=== PATIENT | male | born 1970 | race Caucasian/White ===

== ENCOUNTER 2019-11-01 12:16 | Emergency (ER) | payer BC, OTHER ==
[2019-11-01 12:28] VITALS: RESP 18; TEMP 98.7
[2019-11-01 12:32] LABS: Glucose,Whole Blood 126 mg/dL (75-99)
--- NOTE | 2019-11-01 12:50 | ED ---
General Adult HPI - General Chief complaint: Recheck/Abnormal Lab/Rx Stated complaint: nausea,lethargic Time Seen by Provider: 11/01/19 12:30 Source: patient, RN notes reviewed Mode of arrival: ambulatory Limitations: no limitations - History of Present Illness Initial comments: This a 49-year-old male who was a smoker and does chew tobacco but has no s ignificant medical issues he states who presents with complaints of one half days of feeling fatigued and rundown nausea with sweaty palms. He states he also had some fluid in his left ear several days ago seems to clear it up he also states he has loss of taste he also states he has some chills no overt cough no sore throat no rhinorrhea he does use Flonase intermittently for ALLERGIES. Does state that one of his coworkers-[employer] did test positive for Covid 19 but the patient's did not test positive test and negative. No dysuria hematuria no other modifying factors at this time no other known exposures to any infectious diseases. The patient does state he feels like he is coming down with something however. - Related Data Home Medications Medication Instructions Recorded Confirmed Azelastine HCl [Astepro] 2 spray INHALATION BID 02/16/14 02/16/14 Fluticasone Propionate [Flonase] 2 spray EA NOSTRIL DAILY 02/16/14 02/16/14 Montelukast [Singulair] 10 mg PO DAILY 02/16/14 02/16/14 diazePAM [Valium] 5 mg PO HS 02/16/14 02/16/14 Allergies Allergy/AdvReac Type Severity Reaction Status Date / Time No Known Allergies Allergy Verified 11/01/19 12:18 Review of Systems ROS Statement: Those systems with pertinent positive or pertinent negative responses have been documented in the HPI. ROS Other: All systems not noted in ROS Statement are negative. Past Medical History Additional Past Medical History / Comment(s): chronic back pain History of Any Multi-Drug Resistant Organisms: None Reported Past Surgical History: No Surgical Hx Reported Past Psychological History: Anxiety Smoking Status: Current every day smoker Past Alcohol Use History: None Reported, Rare Past Drug Use History: Marijuana - Past Family History Mother Additional Family Medical History / Comment(s): breast cancer metastasis General Exam - General Exam Comments Initial Comments: This is a well-developed well-nourished awake alert oriented times 3 male Limitations: no limitations General appearance: alert, in no apparent distress Head exam: Present: atraumatic, normocephalic, normal inspection Eye exam: Present: normal appearance, PERRL, EOMI. Absent: scleral icterus, conjunctival injection, periorbital swelling ENT exam: Present: normal exam, mucous membranes moist Neck exam: Present: normal inspection, full ROM, other (No stridor JVD or bruits). Absent: tenderness, meningismus, lymphadenopathy Respiratory exam: Present: normal lung sounds bilaterally. Absent: respiratory distress, wheezes, rales, rhonchi, stridor Cardiovascular Exam: Present: regular rate, normal rhythm, normal heart sounds. Absent: systolic murmur, diastolic murmur, rubs, gallop, clicks GI/Abdominal exam: Present: soft, normal bowel sounds. Absent: distended, tenderness, guarding, rebound, rigid Extremities exam: Present: normal inspection, full ROM, normal capillary refill. Absent: tenderness, pedal edema, joint swelling, calf tenderness Back exam: Present: normal inspection Neurological exam: Present: alert, oriented X3, CN II-XII intact Psychiatric exam: Present: normal affect, normal mood Skin exam: Present: warm, dry, intact, normal color. Absent: rash Course Vital Signs 11/01/19 11/01/19 12:19 14:22 Temperature 98.7 F Pulse Rate 78 64 Respiratory 18 18 Rate Blood Pressure 137/85 124/80 O2 Sat by Pulse 97 100 Oximetry Medical Decision Making - Medical Decision Making I did have a lengthy discussion the patient regarding the findings and the symptoms also are. Her presentation is consistent with a viral etiology. The peripheral markers for Covid 19 are within normal limits though the main test is pending. Patient will be discharged with a note for work for 2 days he is already get a follow-up appointment in 2 days with his doctor. He is return when necessary otherwise symptomatic care we did discuss return parameters. - Lab Data Result diagrams: 11/01/19 12:44 11/01/19 12:44 Lab Results 11/01/19 11/01/19 11/01/19 Range/Units 12:30 12:44 12:44 WBC 8.6 (3.8-10.6) k/uL RBC 5.94 H (4.30-5.90) m/uL Hgb 17.1 (13.0-17.5) gm/dL Hct 52.5 (39.0-53.0) % MCV 88.3 (80.0-100.0) fL MCH 28.8 (25.0-35.0) pg MCHC 32.6 (31.0-37.0) g/dL RDW 12.9 (11.5-15.5) % Plt Count 216 (150-450) k/uL Neutrophils % 69 % Lymphocytes % 24 % Monocytes % 3 % Eosinophils % 2 % Basophils % 0 % Neutrophils # 6.0 (1.3-7.7) k/uL Lymphocytes # 2.1 (1.0-4.8) k/uL Monocytes # 0.3 (0-1.0) k/uL Eosinophils # 0.2 (0-0.7) k/uL Basophils # 0.0 (0-0.2) k/uL D-Dimer (<0.60) mg/L FEU Sodium (137-145) mmol/L Potassium (3.5-5.1) mmol/L Chloride (98-107) mmol/L Carbon Dioxide (22-30) mmol/L Anion Gap mmol/L BUN (9-20) mg/dL Creatinine (0.66-1.25) mg/dL Est GFR (CKD-EPI)AfAm (>60 ml/min/1.73 sqM) Est GFR (CKD-EPI)NonAf (>60 ml/min/1.73 sqM) Glucose (74-99) mg/dL POC Glucose (mg/dL) 126 H (75-99) mg/dL POC Glu [employer] ID Sue Conteh Plasma Lactic Acid Fermín (0.7-2.0) mmol/L Calcium (8.4-10.2) mg/dL Magnesium (1.6-2.3) mg/dL Total Bilirubin (0.2-1.3) mg/dL AST (17-59) U/L ALT (4-49) U/L Alkaline Phosphatase (38-126) U/L Lactate Dehydrogenase (313-618) U/L Creatine Kinase (55-170) U/L Troponin I (0.000-0.034) ng/mL C-Reactive Protein (<10.0) mg/L Total Protein (6.3-8.2) g/dL Albumin (3.5-5.0) g/dL Urine Color Light Yellow Urine Appearance Clear (Clear) Urine pH 7.0 (5.0-8.0) Ur Specific [place] 1.004 (1.001-1.035) Urine Protein Negative (Negative) Urine Glucose (UA) Negative (Negative) Urine Ketones Negative (Negative) Urine Blood Negative (Negative) Urine Nitrite Negative (Negative) Urine Bilirubin Negative (Negative) Urine Urobilinogen <2.0 (<2.0) mg/dL Ur Leukocyte Esterase Negative (Negative) 11/01/19 11/01/19 11/01/19 Range/Units 12:44 12:44 12:48 WBC (3.8-10.6) k/uL RBC (4.30-5.90) m/uL Hgb (13.0-17.5) gm/dL Hct (39.0-53.0) % MCV (80.0-100.0) fL MCH (25.0-35.0) pg MCHC (31.0-37.0) g/dL RDW (11.5-15.5) % Plt Count (150-450) k/uL Neutrophils % % Lymphocytes % % Monocytes % % Eosinophils % % Basophils % % Neutrophils # (1.3-7.7) k/uL Lymphocytes # (1.0-4.8) k/uL Monocytes # (0-1.0) k/uL Eosinophils # (0-0.7) k/uL Basophils # (0-0.2) k/uL D-Dimer 0.38 (<0.60) mg/L FEU Sodium 142 (137-145) mmol/L Potassium 4.4 (3.5-5.1) mmol/L Chloride 106 (98-107) mmol/L Carbon Dioxide 24 (22-30) mmol/L Anion Gap 12 mmol/L BUN 9 (9-20) mg/dL Creatinine 0.64 L (0.66-1.25) mg/dL Est GFR (CKD-EPI)AfAm >90 (>60 ml/min/1.73 sqM) Est GFR (CKD-EPI)NonAf >90 (>60 ml/min/1.73 sqM) Glucose 106 H (74-99) mg/dL POC Glucose (mg/dL) (75-99) mg/dL POC Glu [employer] ID Plasma Lactic Acid Ferm[place] (0.7-2.0) mmol/L Calcium 10.1 (8.4-10.2) mg/dL Magnesium 2.0 (1.6-2.3) mg/dL Total Bilirubin 0.7 (0.2-1.3) mg/dL AST 30 (17-59) U/L ALT 17 (4-49) U/L Alkaline Phosphatase 60 (38-126) U/L Lactate Dehydrogenase (313-618) U/L Creatine Kinase 90 (55-170) U/L Troponin I <0.012 (0.000-0.034) ng/mL C-Reactive Protein (<10.0) mg/L Total Protein 8.5 H (6.3-8.2) g/dL Albumin 5.2 H (3.5-5.0) g/dL Urine Color Urine Appearance (Clear) Urine pH (5.0-8.0) Ur Specific [place] (1.001-1.035) Urine Protein (Negative) Urine Glucose (UA) (Negative) Urine Ketones (Negative) Urine Blood (Negative) Urine Nitrite (Negative) Urine Bilirubin (Negative) Urine Urobilinogen (<2.0) mg/dL Ur Leukocyte Esterase (Negative) 11/01/19 11/01/19 Range/Units 12:48 12:48 WBC (3.8-10.6) k/uL RBC (4.30-5.90) m/uL Hgb (13.0-17.5) gm/dL Hct (39.0-53.0) % MCV (80.0-100.0) fL MCH (25.0-35.0) pg MCHC (31.0-37.0) g/dL RDW (11.5-15.5) % Plt Count (150-450) k/uL Neutrophils % % Lymphocytes % % Monocytes % % Eosinophils % % Basophils % % Neutrophils # (1.3-7.7) k/uL Lymphocytes # (1.0-4.8) k/uL Monocytes # (0-1.0) k/uL Eosinophils # (0-0.7) k/uL Basophils # (0-0.2) k/uL D-Dimer (<0.60) mg/L FEU Sodium (137-145) mmol/L Potassium (3.5-5.1) mmol/L Chloride (98-107) mmol/L Carbon Dioxide (22-30) mmol/L Anion Gap mmol/L BUN (9-20) mg/dL Creatinine (0.66-1.25) mg/dL Est GFR (CKD-EPI)AfAm (>60 ml/min/1.73 sqM) Est GFR (CKD-EPI)NonAf (>60 ml/min/1.73 sqM) Glucose (74-99) mg/dL POC Glucose (mg/dL) (75-99) mg/dL POC Glu [employer] ID Plasma Lactic Acid Ferm[place] 1.2 (0.7-2.0) mmol/L Calcium (8.4-10.2) mg/dL Magnesium (1.6-2.3) mg/dL Total Bilirubin (0.2-1.3) mg/dL AST (17-59) U/L ALT (4-49) U/L Alkaline Phosphatase (38-126) U/L Lactate Dehydrogenase 499 (313-618) U/L Creatine Kinase (55-170) U/L Troponin I (0.000-0.034) ng/mL C-Reactive Protein <5.0 (<10.0) mg/L Total Protein (6.3-8.2) g/dL Albumin (3.5-5.0) g/dL Urine Color Urine Appearance (Clear) Urine pH (5.0-8.0) Ur Specific [place] (1.001-1.035) Urine Protein (Negative) Urine Glucose (UA) (Negative) Urine Ketones (Negative) Urine Blood (Negative) Urine Nitrite (Negative) Urine Bilirubin (Negative) Urine Urobilinogen (<2.0) mg/dL Ur Leukocyte Esterase (Negative) - EKG Data -: EKG Interpreted by Me EKG shows normal: sinus rhythm EKG Comments: Normal sinus rhythm a 65. Interval 148 QRS duration 80 QT since QTC 46/[address]-T wave changes - Radiology Data Radiology results: report reviewed (I did review the imaging and report no acute findings.), image reviewed Disposition Clinical Impression: Viral syndrome Disposition: HOME SELF-CARE Condition: Good Instructions (If sedation given, give patient instructions): Viral Syndrome (ED) Is patient prescribed a controlled substance at d/c from ED?: No Referrals: Barbara Romero PAC [Primary Care Provider] - 1-2 days
[2019-11-01 12:59] LABS: Basophils % (A) 0 %; Eosinophils # (A) 0.2 k/uL (0-0.7); Eosinophils % (A) 2 %; HCT 52.5 % (39.0-53.0); HGB 17.1 gm/dL (13.0-17.5); Lymphocytes # (A) 2.1 k/uL (1.0-4.8); Lymphocytes % (A) 24 %; MCH 28.8 pg (25.0-35.0); MCHC 32.6 g/dL (31.0-37.0); MCV 88.3 fL (80.0-100.0); Monocytes # (A) 0.3 k/uL (0-1.0); Monocytes % (A) 3 %; Neutrophils % (A) 69 %; Platelet Count 216 k/uL (150-450); RBC 5.94 m/uL (4.30-5.90); RDW 12.9 % (11.5-15.5); WBC 8.6 k/uL (3.8-10.6)
[2019-11-01 13:01] LABS: Appearance,Urine Clear (Clear); Bilirubin,Urine Negative (Negative); Blood,Urine Negative (Negative); Color,Urine Light Yellow; Glucose,Urine (UA) Negative (Negative); Ketones,Urine Negative (Negative); Leukocyte Esterase,Urine Negative (Negative); Nitrite,Urine Negative (Negative); Protein,Urine Negative (Negative); Specific Gravity,Urine 1.004 (1.001-1.035); Urobilinogen,Urine <2.0 mg/dL (<2.0)
[2019-11-01 13:17] LABS: C Reactive Protein <5.0 mg/L (<10.0); LDH 499 U/L (313-618)
[2019-11-01 13:17] LABS: ALT 17 U/L (4-49); AST 30 U/L (17-59); African American GFR (CKD) >90 (>60 ml/min/1.73 sqM); Albumin 5.2 g/dL (3.5-5.0); Alkaline Phosphatase 60 U/L (38-126); Anion Gap 12 mmol/L; Blood Urea Nitrogen 9 mg/dL (9-20); Calcium 10.1 mg/dL (8.4-10.2); Carbon Dioxide 24 mmol/L (22-30); Chloride 106 mmol/L (98-107); Creatine Kinase 90 U/L (55-170); Glucose 106 mg/dL (74-99); Non-African American GFR(CKD) >90 (>60 ml/min/1.73 sqM); Potassium 4.4 mmol/L (3.5-5.1); Sodium 142 mmol/L (137-145); Total Bilirubin 0.7 mg/dL (0.2-1.3); Total Protein 8.5 g/dL (6.3-8.2)
[2019-11-01 14:24] VITALS: BP 124/80; PULSE 64
--- NOTE | 2019-11-01 14:25 | XR ---
EXAMINATION TYPE: XR chest 2V DATE OF EXAM: 11/01/2019 HISTORY: fatigue. REFERENCE: Previous study dated 02/16/2014.. FINDINGS: Lungs remain clear. Pleural space are clear. The heart is not enlarged. IMPRESSION: NO ACTIVE INTRATHORACIC DISEASE.
[2019-11-01 17:09] LABS: Ferritin 177.5 ng/mL (22.0-322.0)
== END 2019-11-01 14:58 | disposition home or self-care (01) ==
LOC: EC 12:16
DX: B34.9 Viral infection, unspecified (principal); F41.9 Anxiety disorder, unspecified; F17.200 Nicotine dependence, unspecified, uncomplicated; Z79.899 Other long term (current) drug therapy; Z20.828 Contact with and (suspected) exposure to other viral communicable diseases
CPT/HCPCS: 36415; 93005; 85379; 80053; 82728; 82550; 83605; 83615; 83735; 84484; 85025; 86140; 81003; 71046; 99284; U0003

== ENCOUNTER 2021-04-09 10:00 | Emergency (ER) | payer BC ==
[2021-04-09 10:12] VITALS: BP 137/85; PULSE 97; RESP 20; TEMP 98
[2021-04-09] MEDS ORDERED: SODIUM CHLORIDE 0.9% 1,000 ML IV STA (10:37)
[2021-04-09] MEDS ORDERED: MORPHINE SULFATE 4 MG/ML SYRINGE IVP STA (10:38)
[2021-04-09] MEDS ORDERED: LORazepam 2 MG/ML INJ IV STA (10:43)
[2021-04-09 11:04] LABS: Basophils # (A) 0.1 k/uL (0-0.2); Basophils % (A) 1 %; Eosinophils # (A) 0.3 k/uL (0-0.7); Eosinophils % (A) 2 %; HCT 47.6 % (39.0-53.0); HGB 16.3 gm/dL (13.0-17.5); Lymphocytes # (A) 2.1 k/uL (1.0-4.8); Lymphocytes % (A) 15 %; MCH 30.3 pg (25.0-35.0); MCHC 34.2 g/dL (31.0-37.0); MCV 88.5 fL (80.0-100.0); Mean Platelet Volume 8.4; Monocytes # (A) 1.1 k/uL (0-1.0); Monocytes % (A) 8 %; Neutrophils # (A) 9.6 k/uL (1.3-7.7); Neutrophils % (A) 72 %; Platelet Count 190 k/uL (150-450); RBC 5.37 m/uL (4.30-5.90); RDW 12.8 % (11.5-15.5); WBC 13.4 k/uL (3.8-10.6)
--- NOTE | 2021-04-09 11:06 | ED ---
General Adult HPI - General Chief complaint: Abdominal Pain Stated complaint: Abd.Pain,Sweats Time Seen by Provider: 04/09/21 10:16 Source: patient, RN notes reviewed Mode of arrival: ambulatory Limitations: no limitations - History of Present Illness Initial comments: 50-year-old male presents to the emergency room for rectal pain. Patient states last week he would have a bowel movement and felt severe pain in his rectum. Patient states the pain has been persistent. States that his doctor was concerned it could be a stool blockage and patient took MiraLAX and an enema but it did not seem to help. He states she also gave him 2 g of and antibiotics for an infection at the office. Patient has not had fevers or chills. Patient states he feels a lump in the posterior aspect of his anus. He denies any abdominal pain. Patient has no other complaints at this time including shortness of breath, chest pain, abdominal pain, nausea or vomiting, headache, or visual changes. - Related Data Home Medications Medication Instructions Recorded Confirmed Azelastine HCl [Astepro] 2 spray INHALATION BID 02/16/14 02/16/14 Fluticasone Propionate [Flonase] 2 spray EA NOSTRIL DAILY 02/16/14 02/16/14 Montelukast [Singulair] 10 mg PO DAILY 02/16/14 02/16/14 diazePAM [Valium] 5 mg PO HS 02/16/14 02/16/14 Previous Rx's Medication Instructions Recorded Amoxicillin/Potassium Clav 1 tab PO Q12HR #20 tab 04/09/21 [Augmentin 875-125 Tablet] Allergies Allergy/AdvReac Type Severity Reaction Status Date / Time No Known Allergies Allergy Verified 04/09/21 10:12 Review of Systems ROS Statement: Those systems with pertinent positive or pertinent negative responses have been documented in the HPI. ROS Other: All systems not noted in ROS Statement are negative. Past Medical History Additional Past Medical History / Comment(s): chronic back pain History of Any Multi-Drug Resistant Organisms: None Reported Past Surgical History: No Surgical Hx Reported Past Psychological History: Anxiety Smoking Status: Current every day smoker Past Alcohol Use History: None Reported, Rare Past Drug Use History: Marijuana - Past Family History Mother Additional Family Medical History / Comment(s): breast cancer metastasis General Exam Limitations: no limitations General appearance: alert, in no apparent distress Head exam: Present: atraumatic Eye exam: Present: normal appearance, PERRL, EOMI. Absent: scleral icterus, conjunctival injection ENT exam: Present: normal exam, mucous membranes moist Neck exam: Present: normal inspection, full ROM. Absent: tenderness Respiratory exam: Present: normal lung sounds bilaterally. Absent: respiratory distress, wheezes Cardiovascular Exam: Present: regular rate, normal rhythm, normal heart sounds GI/Abdominal exam: Present: soft, normal bowel sounds. Absent: distended, tenderness Rectal exam: Present: mass (Possible rectal abscess noted posteriorly. 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 Patient is well-appearing. Physical exam does reveal some induration noted perianally. No obvious abscess formation. CBC does show leukocytosis. CMP is unremarkable. Lactic acid is normal. Pelvis CT with contrast does show a tiny perirectal/perianal abscess measuring 1.8 cm x 0.9 cm. Patient currently taking azithromycin. Case discussed with Dr Young. At this point we will discontinue azithromycin and start Augmentin. Patient will do warm soaks in the bathtub several times a day. He will follow up with Dr. Johnson. If he has any worsening symptoms or symptoms are not improving he will return to the emergency room. - Lab Data Result diagrams: 04/09/21 10:53 04/09/21 10:53 Lab Results 04/09/21 04/09/21 04/09/21 Range/Units 10:53 10:53 10:53 WBC 13.4 H (3.8-10.6) k/uL RBC 5.37 (4.30-5.90) m/uL Hgb 16.3 (13.0-17.5) gm/dL Hct 47.6 (39.0-53.0) % MCV 88.5 (80.0-100.0) fL MCH 30.3 (25.0-35.0) pg MCHC 34.2 (31.0-37.0) g/dL RDW 12.8 (11.5-15.5) % Plt Count 190 (150-450) k/uL MPV 8.4 Neutrophils % 72 % Lymphocytes % 15 % Monocytes % 8 % Eosinophils % 2 % Basophils % 1 % Neutrophils # 9.6 H (1.3-7.7) k/uL Lymphocytes # 2.1 (1.0-4.8) k/uL Monocytes # 1.1 H (0-1.0) k/uL Eosinophils # 0.3 (0-0.7) k/uL Basophils # 0.1 (0-0.2) k/uL Manual Slide Review Performed RBC Morphology Normal Sodium 140 (137-145) mmol/L Potassium 4.0 (3.5-5.1) mmol/L Chloride 106 (98-107) mmol/L Carbon Dioxide 23 (22-30) mmol/L Anion Gap 11 mmol/L BUN 15 (9-20) mg/dL Creatinine 0.72 (0.66-1.25) mg/dL Est GFR (CKD-EPI)AfAm >90 (>60 ml/min/1.73 sqM) Est GFR (CKD-EPI)NonAf >90 (>60 ml/min/1.73 sqM) Glucose 101 H (74-99) mg/dL Plasma Lactic Acid Ferm[place] 1.4 (0.7-2.0) mmol/L Calcium 9.8 (8.4-10.2) mg/dL Total Bilirubin 0.7 (0.2-1.3) mg/dL AST 22 (17-59) U/L ALT 17 (4-49) U/L Alkaline Phosphatase 58 (38-126) U/L Total Protein 7.7 (6.3-8.2) g/dL Albumin 4.6 (3.5-5.0) g/dL Amylase 35 (30-110) U/L Lipase 57 (23-300) U/L Disposition Clinical Impression: Perianal abscess Disposition: HOME SELF-CARE Condition: Good Instructions (If sedation given, give patient instructions): Rectal Abscess (ED) Additional Instructions: Please do sitz baths in warm water several times daily. Take Augmentin and discontinue azithromycin. Take Motrin and Tylenol for pain and inflammation. Follow up with primary care on Sunday and Dr. Sy. Return to the emergency room if symptoms are not improving on new antibiotic. Prescriptions: Amoxicillin/Potassium Clav [Augmentin 875-125 Tablet] 1 tab PO Q12HR #20 tab Is patient prescribed a controlled substance at d/c from ED?: No Referrals: Kendrick Chapa DO [Primary Care Provider] - 1-2 days Jarrell Sy MD [Medical Doctor] - 1-2 days Time of Disposition: 12:33
[2021-04-09 11:14] LABS: ALT 17 U/L (4-49); AST 22 U/L (17-59); African American GFR (CKD) >90 (>60 ml/min/1.73 sqM); Albumin 4.6 g/dL (3.5-5.0); Alkaline Phosphatase 58 U/L (38-126); Amylase 35 U/L (30-110); Anion Gap 11 mmol/L; Blood Urea Nitrogen 15 mg/dL (9-20); Calcium 9.8 mg/dL (8.4-10.2); Carbon Dioxide 23 mmol/L (22-30); Chloride 106 mmol/L (98-107); Glucose 101 mg/dL (74-99); Lipase 57 U/L (23-300); Non-African American GFR(CKD) >90 (>60 ml/min/1.73 sqM); Sodium 140 mmol/L (137-145); Total Bilirubin 0.7 mg/dL (0.2-1.3); Total Protein 7.7 g/dL (6.3-8.2)
--- NOTE | 2021-04-09 11:51 | CT ---
EXAMINATION TYPE: CT pelvis w con DATE OF EXAM: 04/09/2021 COMPARISON: None. HISTORY: perirectal abscess CT DLP: 1165.6 mGycm Automated exposure control for dose reduction was used. CONTRAST: Performed without oral but with IV Contrast, patient injected with 100 mL of Isovue 300. FINDINGS: Tiny thin walled fluid collection right perirectal/perianal region measures approximately 1.8 cm AP d iameter by 0.9 cm transversely axial image 59 x 2.3 cm craniocaudal dimension sagittal image 68 consi stent with tiny abscess given patient's history. Surrounding soft tissue is seen without significant fat stranding. The perirectal/perianal triangular fat planes are fairly well maintained near this lev el. Remainder of pelvis shows no suspicious bowel dilatation or other suspicious abnormality. Prostate gl and is mildly enlarged in size. Slight grade 1 anterolisthesis L5 on S1 with bilateral pars defect ar e incidentally noted. IMPRESSION: Tiny right perirectal/perianal abscess confirmed.
[2021-04-09] MEDS ORDERED: KETOROLAC 15 MG/ML 1 ML VIAL IVP STA (12:31)
[2021-04-09] MEDS ORDERED: cefTRIAXone IN SWFI 1,000 MG/10 ML SYRINGE IVP STA (12:31)
== END 2021-04-09 13:18 | disposition home or self-care (01) ==
LOC: EC 10:00
DX: K61.0 Anal abscess (principal); F41.9 Anxiety disorder, unspecified; F17.200 Nicotine dependence, unspecified, uncomplicated; F12.90 Cannabis use, unspecified, uncomplicated
CPT/HCPCS: 99284; 96374; 96375 ×2; 96361; 36415; 80053; 82150; 83605; 83690; 85025; 87040; 72193; J2060; J0696; J1885; Q9967

== ENCOUNTER 2021-05-09 09:42 | Day surgery (SDC) | payer BC ==
[2021-05-05 11:54] VITALS: BMI 27.2
[~2021-05-09 09:42] MED LIST: LACTATED RINGERS 1,000 ML IV SCH; LIDOCAINE 1% (10MG/ML) FOR IV START INTRADERMA PRN
[2021-05-09 10:24] VITALS: RESP 16; TEMP 98.4
[2021-05-09] MEDS ORDERED: LIDOCAINE 1% INJ 10MG/ML (20 ML MDV) ONE (10:49)
[2021-05-09] MEDS ORDERED: PROPOFOL 10 MG/ML 20 ML VIAL IV ONE (10:49)
--- NOTE | 2021-05-09 10:55 | P.GSHP ---
History of Present Illness H&P Date: 05/09/21 Chief Complaint: Perirectal abscess 50-year-old male who's had chronic issues with perirectal abscess. Patient presents today for for colonoscopy Past Medical History Additional Past Medical History / Comment(s): perianal abscess, chronic back pain History of Any Multi-Drug Resistant Organisms: None Reported Past Surgical History: No Surgical Hx Reported Past Anesthesia/Blood Transfusion Reactions: No Reported Reaction Additional Past Anesthesia/Blood Transfusion Reaction / Comment(s): never has had anesthesia Smoking Status: Current every day smoker - Past Family History Mother Additional Family Medical History / Comment(s): breast cancer metastasis Medications and Allergies Home Medications Medication Instructions Recorded Confirmed Type Fluticasone Propionate [Flonase] 2 spray EA NOSTRIL DAILY 02/16/14 05/05/21 History hydrOXYzine HCL [Atarax] 50 mg PO HS PRN 05/05/21 05/05/21 History Allergies Allergy/AdvReac Type Severity Reaction Status Date / Time No Known Allergies Allergy Verified 05/09/21 10:03 Surgical - Exam Vital Signs Temp Pulse Resp BP Pulse Ox 98.4 F 67 16 123/74 98 05/09/21 10:22 05/09/21 10:22 05/09/21 10:22 05/09/21 10:22 05/09/21 10:22 - General well developed, well nourished, no distress - Eyes PERRL - ENT normal pinna - Neck no masses - Respiratory normal expansion - Cardiovascular Rhythm: regular - Abdomen Abdomen: soft, non tender Assessment and Plan Assessment: History of perirectal abscess.. We'll perform colonoscopy.
--- NOTE | 2021-05-09 11:13 | P.OP ---
Date of Procedure: 05/09/21 Preoperative Diagnosis: Rectal abscess Postoperative Diagnosis: Rectal polyp Internal hemorrhoids Procedure(s) Performed: Colonoscopy Anesthesia: MAC Surgeon: Blaine Wall Pathology: other (Rectal polyp) Condition: stable Disposition: PACU Description of Procedure: The patient's placed on the endoscopy table in the lateral position. He received IV. Digital rectal exam was performed. This revealed internal hemorrhoids. The flexible colonoscope was then placed patient anus and passed throughout the entire colon. The ileocecal valve was visualized. The cecum, ascending and transverse colon appeared normal. The descending colon appeared normal. The sigmoid colon appeared normal. Scope was brought back the rectum and there was no inflammatory changes seen. The scope was withdrawn internal hemorrhoids were seen. Scope was then withdrawn from patient.
[2021-05-09 11:39] VITALS: BP 135/82; PULSE 56
--- NOTE | 2021-05-11 08:38 | CDI ---
[facility] [address] [place] [address] Date: 05/11/2021 08:32:00 AM From: Alessandra Genao Phone: Admit Date: 05/09/2021 09:42:00 AM Patient Name: Nic Burris Visit Number: [id number] Discharge Date: 05/09/21 Payor: [facility] Dear Dr. Wall, Please provide clarification as to whether biopsies were performed. Rectal polyp is listed under Postoperative Diagnosis but no mention of biopsy or removal of polyp in the body of report, Please clarify below or do an addendum to procedure note. Thank you for your kind consideration, Addendum made MTDD
== END 2021-05-09 12:10 | disposition home or self-care (01) ==
LOC: ORWHC2ENDO 09:42
PROVIDERS: ATTEND Surgery
DX: K62.1 Rectal polyp (principal); K64.8 Other hemorrhoids; G89.29 Other chronic pain; M54.9 Dorsalgia, unspecified; F17.290 Nicotine dependence, other tobacco product, uncomplicated; F41.9 Anxiety disorder, unspecified; Z80.3 Family history of malignant neoplasm of breast; Z97.2 Presence of dental prosthetic device (complete) (partial); Z79.899 Other long term (current) drug therapy
CPT/HCPCS: 88305; 45380; J2001; J2704; 45385